=== PATIENT | male | born 1980 | race Caucasian/White ===

== ENCOUNTER → 2018-11-11 | Outpatient (CLI) | payer OTHER | LOC: MHCPAIN 13:56 | DX: G89.29 Other chronic pain (principal); M54.12 Radiculopathy, cervical region; M47.812 Spondylosis without myelopathy or radiculopathy, cervical region; R51 Headache; M54.81 Occipital neuralgia | CPT/HCPCS: G0463 ==

== ENCOUNTER → 2018-12-03 | Outpatient (CLI) | payer OTHER | LOC: MHCPAIN 12:50 | DX: G89.29 Other chronic pain (principal); M54.81 Occipital neuralgia; R51 Headache; M47.812 Spondylosis without myelopathy or radiculopathy, cervical region | CPT/HCPCS: G0463 ==

== ENCOUNTER → 2018-12-12 | Outpatient (CLI) | payer OTHER | LOC: MHCPAIN 12:52 | DX: M47.812 Spondylosis without myelopathy or radiculopathy, cervical region (principal); M54.12 Radiculopathy, cervical region ==

== ENCOUNTER → 2018-12-18 | Outpatient (CLI) | payer OTHER | LOC: MHCPAIN 13:49 | DX: G89.29 Other chronic pain (principal); M54.81 Occipital neuralgia; R51 Headache; M47.812 Spondylosis without myelopathy or radiculopathy, cervical region | CPT/HCPCS: G0463 ==

== ENCOUNTER → 2019-01-09 | Outpatient (CLI) | payer OTHER | LOC: MHCPAIN 14:06 | DX: M47.812 Spondylosis without myelopathy or radiculopathy, cervical region (principal); M54.12 Radiculopathy, cervical region ==

== ENCOUNTER → 2019-01-28 | Outpatient (CLI) | payer OTHER | LOC: MHCPAIN 13:16 | DX: G89.29 Other chronic pain (principal); R51 Headache; M47.812 Spondylosis without myelopathy or radiculopathy, cervical region | CPT/HCPCS: G0463 ==

== ENCOUNTER → 2020-02-16 | Outpatient (CLI) | payer OTHER | LOC: COL.RAD 02-10 10:00 | DX: R13.14 Dysphagia, pharyngoesophageal phase (principal) ==

== ENCOUNTER → 2020-06-25 | Outpatient (CLI) | payer OTHER ==
[~2020-06-25] MED LIST: AMITIZA24 MCG PO; AMOXICILLIN/CLA1 TA1 PO; ATROVENTNS0.03% NS; FLEXERIL 1010 MG/TAB PO; FLONASE NASAL S16 GM NS; LYRICA 150MG C150 MG PO; NORCO 325 MG-51 TAB PO
== END ==
LOC: COL.RAD 05-14 09:00
DX: M48.02 Spinal stenosis, cervical region (principal); M25.78 Osteophyte, vertebrae; M50.21 Other cervical disc displacement, high cervical region
CPT/HCPCS: A9585

== ENCOUNTER 2020-07-05 20:55 | Emergency (ER) | payer OTHER ==
[~2020-07-05] VITALS: Ht 170.2 cm; Wt 84.1 kg
[2020-07-05] MEDS ORDERED: FLEXERIL 1010 MG/TAB PO (21:34)
[2020-07-05] MEDS ORDERED: LYRICA 150MG C150 MG PO (21:35)
[2020-07-05] MEDS ORDERED: AMOXICILLIN/CLA1 TA1 PO (21:35)
[2020-07-05] MEDS ORDERED: ATROVENTNS0.03% NS (21:36)
[2020-07-05] MEDS ORDERED: AMITIZA24 MCG PO (21:36)
[2020-07-05] MEDS ORDERED: FLONASE NASAL S16 GM NS (21:36)
[2020-07-05 22:29] VITALS: BP 122/80; PULSE 89
== END 2020-07-05 22:28 | disposition home or self-care (01) ==
LOC: COL.ER 20:55
DX: R04.0 Epistaxis (principal); Z88.6 Allergy status to analgesic agent; Z88.8 Allergy status to other drugs, medicaments and biological substances

== ENCOUNTER 2020-07-07 09:27 | Emergency (ER) | payer OTHER ==
[~2020-07-07] VITALS: Ht 170.2 cm; Wt 84.1 kg
[~2020-07-07 09:27] MED LIST changes: -NORCO 325 MG-51 TAB PO
[2020-07-07 09:35] VITALS: TEMP 97.9
[2020-07-07 11:15] VITALS: BP 130/79; PULSE 79
== END 2020-07-07 11:20 | disposition home or self-care (01) ==
LOC: COL.ER 09:27
DX: R04.0 Epistaxis (principal); Z88.6 Allergy status to analgesic agent; Z88.8 Allergy status to other drugs, medicaments and biological substances

== ENCOUNTER 2020-07-12 14:03 | Emergency (ER) | payer OTHER ==
[~2020-07-12] VITALS: Ht 170.2 cm; Wt 84.1 kg
[2020-07-12 14:15] VITALS: TEMP 97.9
[2020-07-12 16:30] LABS: BASO # 0.1 (0.0-0.2); BASO % 0.6 % (0.0-2.0); EOS # 0.2 (0.0-0.7); EOS % 1.8 % (0-4.0); GRAN # 6.8 (1.4-6.5); GRAN % 78.8 % (42.2-75.2); HEMATOCRIT 42.8 % (42.0-52.0); LYMPH % 11.5 % (20.0-51.0); MEAN CELL VOLUME 86 fl (80.0-100.0); MEAN CORPUSCULAR HEMOGLOBIN 28 pg (27.0-31.0); MEAN CORPUSCULAR HGB CONC 33 g/dl (33.0-37.0); MEAN PLATELET VOLUME 11.8 fl (7.4-10.4); MONO # 0.6 (0.1-0.6); MONO % 6.8 % (1.7-9.3); PLATELET COUNT 251 K/mm3 (130-400); RED BLOOD COUNT 4.98 M/mm3 (4.20-5.60)
[2020-07-12] MEDS ORDERED: NORCO 325 MG-51 TAB PO (16:45)
[2020-07-12 16:55] VITALS: BP 129/71; PULSE 78
== END 2020-07-12 16:55 | disposition home or self-care (01) ==
LOC: COL.ER 14:03
PROVIDERS: Emergency Medicine
DX: R04.0 Epistaxis (principal); Z88.6 Allergy status to analgesic agent; Z88.8 Allergy status to other drugs, medicaments and biological substances